=== PATIENT | male | born 1995 | race Caucasian/White ===

== ENCOUNTER 2020-12-11 12:24 | Day surgery (SDC) | payer OTHER ==
[~2020-12-11] VITALS: Ht 175.3 cm; Wt 94.8 kg
[~2020-12-11 12:24] MED LIST: NS 1,000 ML IV ONE; OMEP40CA4 PO
[2020-12-11] MEDS ORDERED: MIDAZOLAM INJ 2MG/2ML VIAL (J2250 PER 1MG) As Ordered ONE (13:47)
[2020-12-11] MEDS ORDERED: fentaNYL 100 MCG/2 ML INJECTION (J3010) As Ordered ONE (13:48)
[2020-12-11] MEDS ORDERED: LIDOCAINE 2% 100MG/5ML SDV (FOR ANES.) As Ordered ONE ×2 (13:49→13:50)
[2020-12-11] MEDS ORDERED: propofoL 200 MG/20 ML VIAL As Ordered ONE (13:53)
--- NOTE | 2020-12-11 14:30 | ROOR ---
Patient Name: Jonathon Barriga Procedure Date: 12/11/2020 2:06 PM Date of : 1995 Age: 25 Room: [facility] Gender: Male Note Status: Finalized Procedure: Upper Endoscopy + Biopsies + Dilatation Indications: Dysphagia, Heartburn Providers: Reji Garmajo MD Referring MD: MANDI RAYMOND MD Requesting Provider: Medicines: Monitored Anesthesia Care Complications: No immediate complications. Procedure: Pre-Anesthesia Assessment: - The heart rate, respiratory rate, oxygen saturations, blood pressure, adequacy of pulmonary ventilation, and response to care were monitored throughout the procedure. The Endoscope was introduced through the mouth, and advanced to the second part of duodenum. The upper GI endoscopy was accomplished without difficulty. The patient tolerated the procedure well. Findings: The Z-line was regular and was found 40 cm from the incisors. Multiple biopsies were obtained with cold forceps for evaluation to rule out Byers's Esophagus randomly at the gastroesophageal junction. A small hiatal hernia was present. Mucosal changes including ringed esophagus were found in the distal esophagus. Biopsies were obtained from the proximal and distal esophagus with cold forceps for histology of suspected eosinophilic esophagitis. A TTS dilator was passed through the scope. Dilation with a 15-16.5-18 mm balloon dilator was performed to 18 mm in the entire esophagus. The exam was otherwise without abnormality. Impression: - Z-line regular, 40 cm from the incisors. - Small hiatal hernia. - Esophageal mucosal changes suggestive of eosinophilic esophagitis. Biopsied. - The examination was otherwise normal. - Multiple biopsies were obtained at the gastroesophageal junction. - Dilation performed in the entire esophagus. - The examination was otherwise normal. Recommendation: - Patient has a contact number available for emergencies. The signs and symptoms of potential delayed complications were discussed with the patient. Return to normal activities tomorrow. Written discharge instructions were provided to the patient. - High fiber diet. - Discharge patient to home. - Follow an antireflux regimen. - Continue present medications. - Await pathology results. - Telephone GI clinic for pathology results in 1 week. - The findings and recommendations were discussed with the patient's family. Procedure Code(s): --- Professional --- 49807, Esophagogastroduodenoscopy, flexible, transoral; with transendoscopic balloon dilation of esophagus (less than 30 mm diameter) Diagnosis Code(s): --- Professional --- K44.9, Diaphragmatic hernia without obstruction or gangrene K22.8, Other specified diseases of esophagus R13.10, Dysphagia, unspecified R12, Heartburn CPT copyright 2019 [employer]. All rights reserved. The codes documented in this report are preliminary and upon heel emery buffer review may be revised to meet current compliance requirements. Reji Gramajo MD Reji Gramajo MD 12/11/2020 2:30:13 PM Electronically signed by Reji Gramajo MD Number of Addenda: 0 Note Initiated On: 12/11/2020 2:06 PM Estimated Blood Loss: Estimated blood loss: none.
[2020-12-11 14:50] VITALS: BP 131/72
== END 2020-12-11 15:00 | disposition home or self-care (01) ==
LOC: M OPP 12:24
PROVIDERS: ATTEND Internal Medicine Gastroenterology
DX: K22.8 Other specified diseases of esophagus (principal); K44.9 Diaphragmatic hernia without obstruction or gangrene; R13.10 Dysphagia, unspecified; R12 Heartburn; K21.9 Gastro-esophageal reflux disease without esophagitis; F17.210 Nicotine dependence, cigarettes, uncomplicated; Z79.899 Other long term (current) drug therapy; Z91.018 Allergy to other foods
CPT/HCPCS: 43239; 43249; 88305; J2250; J3010